=== PATIENT | female | born 1960 | race Caucasian/White ===

== ENCOUNTER 2018-11-11 11:03 | Emergency (ER) | payer OTHER ==
[2018-11-11 11:22] VITALS: BP 124/80; PULSE 104; RESP 16; TEMP 99; O2SAT 99
--- NOTE | 2018-11-11 11:42 | C.PDOC ---
History Of Present Illness 58 year old female presents to the ED for evaluation of right upper tooth ache that gradually developed over the past 2-3 days. Patient states she woke up today with mild right-sided facial swelling and pain around Right upper tooth. Pt denies fever, chills, recent illness, drooling, trismus, shortness of breath, cough, denies recent dental procedure. Ambulatory, not in any apparent distress. Time Seen by Provider: 11/11/18 11:33 Chief Complaint (Nursing): Dental Pain History Per: Patient History/Exam Limitations: no limitations Onset/Duration Of Symptoms: Days (2-3), Gradual Current Symptoms Are (Timing): Worse Quality: Positive for: Aching Additional History Per: Patient Past Medical History Reviewed: Historical Data, Nursing Documentation, Vital Signs Vital Signs: Last Vital Signs Temp 99 F 11/11/18 11:18 Pulse 104 H 11/11/18 11:18 Resp 16 11/11/18 11:18 BP 124/80 11/11/18 11:18 Pulse Ox 99 11/11/18 11:18 - Medical History PMH: Back Problems Surgical History: Cholecystectomy Family History: States: Unknown Family Hx - Social History Hx Alcohol Use: No Hx Substance Use: No - Immunization History Hx Influenza Vaccination: No Hx Pneumococcal Vaccination: No Review Of Systems Constitutional: Negative for: Fever, Chills ENT: Positive for: Mouth Pain (right upper tooth ache, with mild right-sided facial swelling ). Negative for: Other (drooling, trismus) Respiratory: Negative for: Cough, Shortness of Breath Physical Exam - Physical Exam Appears: Well, Non-toxic, No Acute Distress Skin: Normal Color, Warm, Dry Eye(s): bilateral: PERRL Ear(s): Bilateral: Normal Nose: No Flaring, No Discharge Oral Mucosa: Moist, No Drooling, No Trismus Tongue: Normal Appearing Lips: Normal Appearing Teeth: Tender To Palpation (to percussion of tooth #5) Gingiva: Other (gingival edema, tenderness, erythema tooth #5. no fluctuance ) Throat: No Erythema, No Exudate, No Drooling Neck: Trachea Midline, Supple Cardiovascular: Rhythm Regular, No Murmur, No JVD Respiratory: No Decreased Breath Sounds, No Accessory Muscle Use, No Rales, No Rhonchi, No Stridor, No Wheezing Neurological/Psych: Oriented x3, Normal Speech, Normal Cognition ED Course And Treatment O2 Sat by Pulse Oximetry: 99 (on RA) Pulse Ox Interpretation: Normal Progress Note: Clindamycin PO and Tramadol PO given. On re-eval, pt is afebrile, henodynamical stable. non-toxic. PulsEOx 99% RA. ENT: #5 early tooth abscess, no drooling, no trismus. uvual midline, no edma. neck: Supple, (-) meningeal sign, (-) carotid bruits B/L, (-) JVD. Lungs: CTA B/L, BS equal B/L. Pt gordon slcinical findings c/w early tooth abscess. Pt advised. ref. to f/u with Dentist in 2-3 days for re-eval. return if any new changes Disposition Counseled Patient/Family Regarding: Diagnosis, Need For Followup, Rx Given - Disposition Referrals: [facility] [Provider Group] [facility] [Provider Group] Disposition: HOME/ ROUTINE Disposition Time: 11:41 Condition: STABLE Additional Instructions: Warm salty water tooth soak twice daily take medication as prescribed Follow up with Dentist in2 -3 days for re-evaluation. return if any new changes. Prescriptions: Clindamycin [Cleocin] 300 mg PO Q6 #28 cap traMADol [Ultram] 50 mg PO TID #7 tab Instructions: Tooth Abscess (DC), Dental Pain (DC) Forms: [facility] (Kinyarwanda) - Clinical Impression Clinical Impression: Dental abscess - PA / [employer] / Resident Statement MD/DO has reviewed & agrees with the documentation as recorded. - Scribe Statement The provider has reviewed the documentation as recorded by the Scribe (Jennifer Perdomo) All medical record entries made by the Scribe were at my direction and personally dictated by me. I have reviewed the chart and agree that the record accurately reflects my personal performance of the history, physical exam, medical decision making, and the department course for this patient. I have also personally directed, reviewed, and agree with the discharge instructions and disposition.
== END 2018-11-11 11:53 | disposition home or self-care (01) ==
LOC: C.ER 11:03
DX: K04.7 Periapical abscess without sinus (principal)